=== PATIENT | male | born 1995 | race Caucasian/White ===

== ENCOUNTER 2017-10-08 17:06 | Emergency (ER) | END 2017-10-08 18:42 | disposition home or self-care (01) ==

== ENCOUNTER 2018-10-12 09:28 | Emergency (ER) | payer OTHER ==
[~2018-10-12] VITALS: Ht 160 cm; Wt 92.9 kg
[~2018-10-12 09:28] MED LIST: DICY10CA40 PO; LOPE2CAP PO
[2018-10-12 09:30] VITALS: PULSE 110; RESP 16; Ht 160 cm; Wt 92.9 kg
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
[2018-10-12] MEDS ORDERED: IBUPROFEN LIQUID (PED) 20 MG/ML CUP PO STA (10:50)
[2018-10-12] MEDS ORDERED: morphine LIQ (10 MG/5 ML) CUP PO ONE (11:00)
== END 2018-10-12 12:06 | disposition home or self-care (01) ==
LOC: FTE 09:28
DX: S02.601A Fracture of unspecified part of body of right mandible, initial encounter for closed fracture (principal); S02.652B Fracture of angle of left mandible, initial encounter for open fracture; Y04.0XXA Assault by unarmed brawl or fight, initial encounter
CPT/HCPCS: 70486; Z7502; Z7610